=== PATIENT | male | born 1955 | race African-American/Black ===

== ENCOUNTER 2022-03-29 12:55 | Observation (INO) | payer OTHER, BC ==
[2022-03-29 14:02] LABS: #Lymphocytes 0.4 thou/uL (1.20-3.40); #Monocytes 0.6 thou/uL (0.11-0.59); %Basophils 0.1 % (0.0-1.0); %Eosinophils 0.1 % (0.0-10.0); %Lymphocytes 4.3 % (21.0-51.0); %Neutrophils 89.5 % (42.0-75.0); Hemoglobin 14.5 g/dL (14.0-18.0); Mean Corpuscular HGB CONC 33.3 g/dL (32.0-36.0); Mean Corpuscular Hemoglobin 30.6 pg (27.0-31.0); Mean Corpuscular Volume 91.9 fL (78.0-98.0); Mean Platelet Volume 8.4 fL (7.4-10.4); Platelet Count 195 thou/uL (130-400); RBC Distribution Width 11.3 % (11.5-14.5); Red Blood Cell (RBC) Count 4.75 mill/uL (4.70-6.10); White Blood Cell (WBC) Count 10.1 thou/uL (4.8-10.8)
[2022-03-29 14:10] LABS: Bacteria/HPF None Seen HPF (None Seen); Bilirubin Negative (Negative); Blood, Urine Trace (Negative); Clarity Clear (Clear); Glucose, Urine (Dipstick) >=1000 mg/dL (Negative); Ketone, Urine Trace mg/dL (Negative); Leukocyte Negative Leu/uL (Negative); Nitrite Negative (Negative); Protein, Urine (Dipstick) 20 mg/dL (Neg-Trace); RBC/HPF None Seen HPF (0-3); Specific Gravity, Urine 1.017 (1.002-1.036); Squamous Epithelial None Seen HPF (0-3); Urobilinogen Normal mg/dL (Less than 2); WBC/HPF 0-3 HPF (0-3); pH, Urine 5.5 (5.0-9.0)
[2022-03-29 14:31] LABS: ALT (SGPT) 21 U/L (8-55); AST (SGOT) 13 U/L (5-34); Albumin 4.3 g/dL (3.4-4.8); Alkaline Phosphatase 74 U/L (40-110); Anion Gap 14 mmol/L (10-20); BUN (Urea Nitrogen) 9 mg/dL (8.4-25.7); Bilirubin, Total 0.4 mg/dL (0.2-1.2); Calc. Creatinine Clearance 0 mL/min (70-130); Calcium 9.4 mg/dL (7.8-10.44); Carbon Dioxide 25 mmol/L (23-31); Chloride 101 mmol/L (98-107); Estimated GFR 86; Globulin 3.3 g/dL (2.4-3.5); Glucose 127 mg/dL (80-115); Potassium 3.9 mmol/L (3.5-5.1); Protein, Total 7.6 g/dL (5.8-8.1); Sodium 136 mmol/L (136-145)
[2022-03-29] MEDS ORDERED: Magnevist 469MG/ML 20 ML VIAL ONE ×3 (15:34)
[2022-03-29] MEDS ORDERED: Acetaminophen 325 MG TAB PO PRN (16:06)
[2022-03-29] MEDS ORDERED: Bisacodyl 5 MG TAB PO PRN (16:06)
[2022-03-29] MEDS ORDERED: Ondansetron PF 4 MG/2 ML Vial IVP PRN (16:06)
[2022-03-29] MEDS ORDERED: Ondansetron ODT 4 MG TAB PO PRN (16:06)
[2022-03-29] MEDS ORDERED: Senokot S 8.6-50 MG TAB PO PRN (16:06)
[2022-03-29] MEDS ORDERED: Acetaminophen 650 MG Suppository PR PRN (16:06)
[2022-03-29] MEDS: Sodium Chloride 0.9% 1,000 ML IV SCH (18:27)
[2022-03-29 19:35] LABS: SARS-CoV-2 NAA Rapid Test DETECTED (NotDetected)
[2022-03-29] MEDS ORDERED: Atorvastatin Calcium 40 MG TAB PO SCH (21:00)
[2022-03-29] MEDS ORDERED: Benzonatate 100 MG CAP PO PRN (22:23)
[2022-03-29] MEDS ORDERED: hydrALAZINE 20 MG/ML VIAL SLOW IVP PRN ×2 (22:35→22:36)
[2022-03-29 22:38] VITALS: BMI 26.5
[2022-03-30 05:56] LABS: #Lymphocytes 0.9 thou/uL (1.20-3.40); #Monocytes 0.9 thou/uL (0.11-0.59); #Neutrophils 5.4 thou/uL (1.40-6.50); %Basophils 0.4 % (0.0-1.0); %Eosinophils 0.1 % (0.0-10.0); %Lymphocytes 12.6 % (21.0-51.0); %Monocytes 11.8 % (0.0-10.0); Hemoglobin 14.5 g/dL (14.0-18.0); Mean Corpuscular HGB CONC 32.4 g/dL (32.0-36.0); Mean Corpuscular Hemoglobin 30.3 pg (27.0-31.0); Mean Corpuscular Volume 93.5 fL (78.0-98.0); Mean Platelet Volume 9.4 fL (7.4-10.4); Platelet Count 185 thou/uL (130-400); RBC Distribution Width 11.1 % (11.5-14.5); Red Blood Cell (RBC) Count 4.79 mill/uL (4.70-6.10); White Blood Cell (WBC) Count 7.2 thou/uL (4.8-10.8)
[2022-03-30 06:12] LABS: Hemoglobin A1c 6.2 % (4.0-6.0)
[2022-03-30 06:22] LABS: ALT (SGPT) 20 U/L (8-55); AST (SGOT) 14 U/L (5-34); Alkaline Phosphatase 63 U/L (40-110); Anion Gap 13 mmol/L (10-20); BUN (Urea Nitrogen) 8 mg/dL (8.4-25.7); Bilirubin, Total 0.6 mg/dL (0.2-1.2); Calc. Creatinine Clearance 102 mL/min (70-130); Calcium 9.3 mg/dL (7.8-10.44); Carbon Dioxide 23 mmol/L (23-31); Chloride 104 mmol/L (98-107); Cholesterol 131 mg/dl (< 200 Desired); Estimated GFR 91; Globulin 3.6 g/dL (2.4-3.5); Glucose 144 mg/dL (80-115); HDL Cholesterol 66 mg/dL (>60 Neg Risk); LDL Cholesterol, Calculated 53 mg/dL; Potassium 3.8 mmol/L (3.5-5.1); Protein, Total 7.6 g/dL (5.8-8.1); Sodium 136 mmol/L (136-145); Triglycerides 62 mg/dL (Less than 150)
[2022-03-30] MEDS: Fluticasone Propionate Nasal Spray 16 gm Bottle NASAL SCH (10:17)
[2022-03-30] MEDS: NIRMATRELVIR 150 MG/RITONAVIR 100 MG PO SCH ×2 (12:22→21:03)
[2022-03-30] MEDS: Sodium Chloride 0.9% 1,000 ML IV SCH (19:58)
[2022-03-31] MEDS: NIRMATRELVIR 150 MG/RITONAVIR 100 MG PO SCH (09:07)
[2022-03-31] MEDS: Fluticasone Propionate Nasal Spray 16 gm Bottle NASAL SCH (09:07)
[2022-03-31 10:46] VITALS: TEMP 98.1
[2022-03-31 12:25] VITALS: BP 130/99
[2022-04-04] MEDS ORDERED: Atorvastatin Calcium 40 MG TAB PO SCH (21:00)
== END 2022-03-31 13:20 | disposition home or self-care (01) ==
LOC: ERS 12:55 → SUATTDRO 12:55 → ERHOLD 16:06 → NEURO 20:03
PROVIDERS: ADMIT Internal Medicine; ATTEND Internal Medicine
DX: R53.1 Weakness (principal); U07.1 COVID-19; I10 Essential (primary) hypertension; G35 Multiple sclerosis; E04.2 Nontoxic multinodular goiter; R26.89 Other abnormalities of gait and mobility; M47.812 Spondylosis without myelopathy or radiculopathy, cervical region; M50.31 Other cervical disc degeneration, high cervical region; M48.02 Spinal stenosis, cervical region; M48.03 Spinal stenosis, cervicothoracic region; M47.815 Spondylosis without myelopathy or radiculopathy, thoracolumbar region; M51.26 Other intervertebral disc displacement, lumbar region; M47.816 Spondylosis without myelopathy or radiculopathy, lumbar region; M48.061 Spinal stenosis, lumbar region without neurogenic claudication; M47.817 Spondylosis without myelopathy or radiculopathy, lumbosacral region; I08.3 Combined rheumatic disorders of mitral, aortic and tricuspid valves; Z79.84 Long term (current) use of oral hypoglycemic drugs; Z79.899 Other long term (current) drug therapy; W01.0XXA Fall on same level from slipping, tripping and stumbling without subsequent striking against object, initial encounter; Y92.513 Shop (commercial) as the place of occurrence of the external cause
CPT/HCPCS: 36415; 36416; 70450; 70553; 72156; 72158; 76536; 80053; 80061; 81003; 81015; 83036; 85025; 93005; 93306; 94760; 96374; A9579; G0378; J0360; J7050; U0002

== ENCOUNTER 2022-10-25 14:07 | Outpatient (CLI) | payer BC | END 2022-10-25 14:08 | disposition home or self-care (01) | LOC: BICRAD 14:07 | PROVIDERS: ATTEND Family Medicine | DX: M53.3 Sacrococcygeal disorders, not elsewhere classified (principal) | CPT/HCPCS: 72100 ==